=== PATIENT | female | born 1990 | race Two or more races ===

== ENCOUNTER 2021-11-30 08:45 | Emergency (ER) | payer OTHER ==
[~2021-11-30] VITALS: Ht 167.6 cm; Wt 68.0 kg
--- NOTE | 2021-11-30 09:00 | NUR ---
Pt AAO, apprpopriate/responsive [facility]-15. Ambulatory gait even/steady. Denies any pain or any complaints at this time +anxiety/teary eyed. Declines/Refusing care at this time states " I have to go to class"
[2021-11-30 09:01] VITALS: BP 112/63
== END 2021-11-30 09:07 | disposition home or self-care (01) ==
LOC: ER 08:58
DX: Z53.21 Procedure and treatment not carried out due to patient leaving prior to being seen by health care provider (principal)